=== PATIENT | female | born 1990 | race Two or more races ===

== ENCOUNTER 2021-05-07 00:17 | Outpatient (CLI) | payer OTHER ==
[2021-05-07] MEDS ORDERED: PEPCID20 MG PO (00:34)
[2021-05-07] MEDS ORDERED: PRENATAL TABLE1 EAC1 PO (00:35)
[2021-05-07] MEDS ORDERED: PEPTO-BISM525 MG/15 PO (00:35)
== END 2021-05-07 09:46 | disposition home or self-care (01) ==
LOC: OBS/DEL 00:17
PROVIDERS: ATTEND Obstetrics & Gynecology
DX: O26.892 Other specified pregnancy related conditions, second trimester (principal); Z3A.27 27 weeks gestation of pregnancy; K29.70 Gastritis, unspecified, without bleeding

== ENCOUNTER 2021-06-05 10:53 | Outpatient (CLI) | payer OTHER ==
[~2021-06-05 10:53] MED LIST: PEPCID20 MG PO; PEPTO-BISM525 MG/15 PO; PRENATAL TABLE1 EAC1 PO
== END 2021-06-05 12:37 | disposition home or self-care (01) ==
LOC: NST 10:53
PROVIDERS: ATTEND Obstetrics & Gynecology Maternal & Fetal Medicine
DX: Z34.83 Encounter for supervision of other normal pregnancy, third trimester (principal)

== ENCOUNTER 2021-06-15 04:28 | Inpatient (IN) | payer OTHER ==
[~2021-06-15] VITALS: Ht 160 cm; Wt 1.8 kg
[2021-06-15] MEDS ORDERED: PRENATABS RX T1 EACH PO (05:50)
[2021-06-18] MEDS ORDERED: KETO10TA2 PO (07:40)
[2021-06-18] MEDS ORDERED: PERCOCET 5-3251 EACH PO (07:42)
== END 2021-06-18 14:28 | disposition home or self-care (01) | DRG 786 ==
LOC: LDR 04:28 → OB/GYN 17:30
PROVIDERS: ADMIT Obstetrics & Gynecology Maternal & Fetal Medicine; ATTEND Obstetrics & Gynecology Maternal & Fetal Medicine
PROC: 4A1HXCZ Monitoring of Products of Conception, Cardiac Rate, External Approach (ICD-10-PCS; 2021-06-15)
PROC: 10D00Z1 Extraction of Products of Conception, Low, Open Approach (ICD-10-PCS; principal; 2021-06-15 12:00)
DX: O32.1XX0 Maternal care for breech presentation, not applicable or unspecified (principal); O60.14X0 Preterm labor third trimester with preterm delivery third trimester, not applicable or unspecified; O41.14 Placentitis; O30.033 Twin pregnancy, monochorionic/diamniotic, third trimester; Z37.2 Twins, both liveborn; Z3A.32 32 weeks gestation of pregnancy; Z20.822 Contact with and (suspected) exposure to COVID-19

== ENCOUNTER 2021-07-07 14:19 | Inpatient (IN) | payer OTHER ==
[~2021-07-07] VITALS: Ht 160 cm; Wt 77.1 kg
[~2021-07-07 14:19] MED LIST changes: +KETO10TA2 PO; +PERCOCET 5-3251 EACH PO; +PRENATABS RX T1 EACH PO
[2021-07-12] MEDS ORDERED: AMOX1TAB5 PO (07:27)
[2021-07-12] MEDS ORDERED: ULTRACET PO (07:28)
[2021-07-12] MEDS ORDERED: PROTONIX40 MG PO (07:29)
== END 2021-07-12 14:09 | disposition home or self-care (01) | DRG 419 ==
LOC: ER 14:19 → SURH 07-08 07:41
PROVIDERS: Surgery; ADMIT Internal Medicine; ATTEND Internal Medicine
PROC: BW40ZZZ Ultrasonography of Abdomen (ICD-10-PCS; 2021-07-07)
PROC: 0DNW4ZZ Release Peritoneum, Percutaneous Endoscopic Approach (ICD-10-PCS; 2021-07-08)
PROC: BF03YZZ Plain Radiography of Gallbladder and Bile Ducts using Other Contrast (ICD-10-PCS; 2021-07-08)
PROC: 0FT44ZZ Resection of Gallbladder, Percutaneous Endoscopic Approach (ICD-10-PCS; principal; 2021-07-08 13:00)
PROC: BF37ZZZ Magnetic Resonance Imaging (MRI) of Pancreas (ICD-10-PCS; 2021-07-11)
DX: K80.10 Calculus of gallbladder with chronic cholecystitis without obstruction (principal); K66.0 Peritoneal adhesions (postprocedural) (postinfection); E86.0 Dehydration; Z20.822 Contact with and (suspected) exposure to COVID-19

== ENCOUNTER 2024-05-09 09:38 | Emergency (ER) | payer OTHER ==
[~2024-05-09] VITALS: Ht 160 cm; Wt 81.6 kg
[~2024-05-09 09:38] MED LIST changes: +AMOX1TAB5 PO; +PROTONIX40 MG PO; +ULTRACET PO
[2024-05-09] MEDS ORDERED: 0.9 % SODIUM CHLORIDE 1,000 ML IV SCH (10:30)
[2024-05-09 10:56] LABS: HEMATOCRIT 39.9 % (36.0-45.00); HEMOGLOBIN 13.6 g/dL (12.0-15.00); MEAN CELL VOLUME 85.8 fL (80.00-100.00); MEAN CORPUSCULAR HEMOGLOBIN 29.2 pg (27.00-32.0); PLATELET COUNT 250 K/uL (150-450); RED BLOOD COUNT 4.65 M/uL (4.00-6.00)
== END 2024-05-09 13:53 | disposition home or self-care (01) ==
LOC: ER 09:40
PROVIDERS: Emergency Medicine
DX: O20.8 Other hemorrhage in early pregnancy (principal); Z3A.01 Less than 8 weeks gestation of pregnancy

== ENCOUNTER 2024-05-21 22:13 | Emergency (ER) | payer OTHER ==
[~2024-05-21] VITALS: Ht 160 cm; Wt 81.6 kg
[2024-05-21] MEDS ORDERED: METHOTREXA25 MG/1 M5 (22:20)
[2024-05-22] MEDS ORDERED: RINGERS SOLUTION,LACTATED 1,000 ML IV STA (00:25)
[2024-05-22 01:42] LABS: HEMATOCRIT 36.5 % (36.0-45.00); HEMOGLOBIN 12.5 g/dL (12.0-15.00); MEAN CELL VOLUME 84.5 fL (80.00-100.00); MEAN CORPUSCULAR HEMOGLOBIN 28.8 pg (27.00-32.0); MEAN CORPUSCULAR HGB CONC 34.1 g/dl (32.0-36.0); PLATELET COUNT 270 K/uL (150-450); RED BLOOD COUNT 4.32 M/uL (4.00-6.00); RED CELL DISTRIBUTION WIDTH 13.1 % (11.5-14.5)
[2024-05-22 01:50] LABS: INR 0.98; PARTIAL THROMBOPLASTIN TIME 20.4 SECONDS (22.0-34.0); PROTHROMBIN TIME 10.7 SECONDS (9.0-11.5)
[2024-05-22 02:39] LABS: CALCIUM 9.3 mg/dL (8.5-10.1); CREATININE SERUM 0.72 mg/dL (0.55-1.02); GFR 92.72; POTASSIUM 3.78 mEq/L (3.5-5.1)
[2024-05-22] MEDS ORDERED: PIPERACILLIN/TAZOBACTAM SODIUM 3.375 GM VIAL IV STA (06:32)
[2024-05-22] MEDS ORDERED: KETOROLAC TROMETHAMINE 60 MG VIAL IM STA (06:35)
[2024-05-22] MEDS ORDERED: TRAMADOL HCL 50 MG TABLET PO STA (06:35)
[2024-05-22] MEDS ORDERED: KETOROLAC TROMETHAMINE 60 MG VIAL IM ONE (06:43)
== END 2024-05-22 06:51 | disposition home or self-care (01) ==
LOC: ER 22:14
DX: O20.8 Other hemorrhage in early pregnancy (principal); Z3A.01 Less than 8 weeks gestation of pregnancy; R10.2 Pelvic and perineal pain

== ENCOUNTER 2024-05-28 11:35 | Inpatient (IN) | payer OTHER ==
[~2024-05-28] VITALS: Ht 160 cm; Wt 83.0 kg
[~2024-05-28 11:35] MED LIST changes: +METHOTREXA25 MG/1 M5
[2024-05-28] MEDS ORDERED: KETOROLAC TROMETHAMINE 60 MG VIAL IM ONE (13:15)
[2024-05-28 13:28] LABS: HEMATOCRIT 33.7 % (36.0-45.00); HEMOGLOBIN 11.6 g/dL (12.0-15.00); MEAN CELL VOLUME 83.4 fL (80.00-100.00); MEAN CORPUSCULAR HEMOGLOBIN 28.7 pg (27.00-32.0); MEAN CORPUSCULAR HGB CONC 34.4 g/dl (32.0-36.0); PLATELET COUNT 250 K/uL (150-450); RED BLOOD COUNT 4.04 M/uL (4.00-6.00); RED CELL DISTRIBUTION WIDTH 13.1 % (11.5-14.5)
[2024-05-28] MEDS ORDERED: 0.9 % SODIUM CHLORIDE 500 ML IV SCH (15:30)
[2024-05-28 16:25] LABS: INR 1.02; PROTHROMBIN TIME 11.1 SECONDS (9.0-11.5)
[2024-05-28 16:26] LABS: CALCIUM 9.6 mg/dL (8.5-10.1); CREATININE SERUM 0.8 mg/dL (0.55-1.02); GFR 82.11; POTASSIUM 4.3 mEq/L (3.5-5.1)
[2024-05-28] MEDS ORDERED: METOCLOPRAMIDE HCL 5 MG/ML VIAL ONE (20:27)
[2024-05-28] MEDS ORDERED: CITRIC ACID/SODIUM CITRATE 30 ML BLIST.PACK PO ONE (20:27)
[2024-05-28] MEDS ORDERED: CEFAZOLIN SODIUM 1,000 MG VIAL ONE (21:24)
[2024-05-28] MEDS ORDERED: SURGIFLO APPLICATOR 1 EACH APPL TOP ONE (21:43)
[2024-05-28] MEDS ORDERED: HEMOSTATIC MATRIX WITH THROMBIN KIT TOP ONE (21:43)
[2024-05-28] MEDS ORDERED: MORPHINE SULFATE 4 MG/ML CARTRIDGE IV PRN (23:45)
[2024-05-29] MEDS ORDERED: KETOROLAC TROMETHAMINE 30 MG VIAL IV SCH
[2024-05-29 00:27] VITALS: O2SAT 100
[2024-05-29 00:34] VITALS: BP 105/69
[2024-05-29] MEDS ORDERED: SIMETHICONE 125 MG CAPSULE PO SCH (01:00)
[2024-05-29 01:10] VITALS: BP 105/69
[2024-05-29 02:37] LABS: HEMATOCRIT 27.1 % (36.0-45.00); HEMOGLOBIN 9.4 g/dL (12.0-15.00); MEAN CELL VOLUME 83.7 fL (80.00-100.00); MEAN CORPUSCULAR HEMOGLOBIN 29.1 pg (27.00-32.0); MEAN CORPUSCULAR HGB CONC 34.8 g/dl (32.0-36.0); PLATELET COUNT 215 K/uL (150-450); RED BLOOD COUNT 3.24 M/uL (4.00-6.00); RED CELL DISTRIBUTION WIDTH 13.6 % (11.5-14.5)
[2024-05-29 08:00] VITALS: BP 90/60
[2024-05-29 08:31] LABS: MEAN CELL VOLUME 85.2 fL (80.00-100.00); MEAN CORPUSCULAR HEMOGLOBIN 29.6 pg (27.00-32.0); MEAN CORPUSCULAR HGB CONC 34.8 g/dl (32.0-36.0); PLATELET COUNT 202 K/uL (150-450); RED BLOOD COUNT 3.05 M/uL (4.00-6.00); RED CELL DISTRIBUTION WIDTH 12.9 % (11.5-14.5)
[2024-05-29] MEDS ORDERED: GABAPENTIN 300 MG CAPSULE PO SCH (09:00)
== END 2024-05-29 13:32 | disposition home or self-care (01) | DRG 817 ==
LOC: ER 11:36 → SEC-K 20:14 → OB/GYN 20:14 → O/R 20:23 → OB/GYN 23:14
PROVIDERS: Emergency Medicine; ADMIT Obstetrics & Gynecology; ATTEND Obstetrics & Gynecology
PROC: 0UT54ZZ Resection of Right Fallopian Tube, Percutaneous Endoscopic Approach (ICD-10-PCS; 2024-05-28)
PROC: 0W9G4ZZ Drainage of Peritoneal Cavity, Percutaneous Endoscopic Approach (ICD-10-PCS; 2024-05-28)
PROC: BU4CZZZ Ultrasonography of Uterus and Ovaries (ICD-10-PCS; 2024-05-28)
PROC: BW21ZZZ Computerized Tomography (CT Scan) of Abdomen and Pelvis (ICD-10-PCS; 2024-05-28)
PROC: BW21YZZ Computerized Tomography (CT Scan) of Abdomen and Pelvis using Other Contrast (ICD-10-PCS; 2024-05-28)
PROC: 10D24ZZ Extraction of Products of Conception, Ectopic, Percutaneous Endoscopic Approach (ICD-10-PCS; principal; 2024-05-28 19:00)
DX: O00.101 Right tubal pregnancy without intrauterine pregnancy (principal); K66.1 Hemoperitoneum